=== PATIENT | female | born 1990 | race Hispanic/Latino ===

== ENCOUNTER 2020-05-10 11:48 | Emergency (ER) | payer MEDICAID, SELFPAY ==
[2020-05-10 12:00] VITALS: BP 116/70; PULSE 88; RESP 18; TEMP 36.5; O2SAT 100
--- NOTE | 2020-05-10 12:11 | ED.LOWEXIN ---
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 She also states that she is in first trimester of . States that it is hard for her to walk and she is generally uncomfortable is here for an x-ray; she has not seen by her doctor patient is G3, P2; has ultrasound scheduled on 05/20 Related Data Home Medications Medication Instructions Recorded Confirmed 05/10/20 Allergies Allergy/AdvReac Type Severity Reaction Status Date / Time No Known Allergies Allergy Unverified 03/28/18 21:40 Review of Systems Review of Systems: Narrative: CONSTITUTIONAL: Denies fever, chills, sweats. EYES: Denies visual changes, redness, discharge. ENT: Denies rhinorrhea, congestion, sore throat, otalgia. CARDIOVASCULAR: Denies chest pain, palpitations, edema. RESPIRATORY: Denies dyspnea, wheezing, cough GASTROINTESTINAL: Denies abdominal pain, nausea, vomiting, diarrhea. GENITOURINARY: Denies dysuria, hematuria, abnormal discharge SKIN: Denies rash or itching. NEUROLOGIC: Denies numbness, or focal weakness. PSYCHIATRIC: Denies anxiety or depression. Right hip pain that radiates down leg PMFSH Family History Family History Other No active medical problems Social History Social History (Updated 05/10/20 @ 12:13 by Apryl Franz CNP) Smoking status: Never smoker Alcohol intake: never Comments At time of signature, I agree with nursing past medical, surgical, social and family history. There is no relevant family history pertinent to the presenting complaint. Exam Narrative: Exam Narrative: GENERAL: This is a well-nourished, well-developed patient, in mild distress. HEAD: normocephalic, atraumatic. EYES: Sclera clear/white. Vision is grossly intact. EARS: External ears normal, auditory canals clear and without drainage, TMs normal without perforation. Hearing grossly intact. NOSE: External nose normal without nasal discharge, nares without redness, no rhinorrhea. THROAT: Mucous membranes moist, NECK: Neck supple, CARDIOVASCULAR: Regular rate and rhythm without murmurs, gallops, or rubs. RESPIRATORY: Clear to auscultation. Breath sounds equal bilaterally. No wheezes, rales, or rhonchi. GASTROINTESTINAL: Abdomen soft, SKIN: warm, intact with no suspicious lesions or rash, good texture and turgor. NEURO: awake, alert, and oriented to person, place and time. There were no obvious focal neurologic abnormalities. Steady gait EXTREMITIES: Normal range of motion. Patient is limping states she has pain in her right hip BACK: Nontender without deformity Course Course Emergency Course: Because of will not x-ray patient's hip. Explained results to patient. Discussed use of Tylenol and will give muscle relaxant encouraged her to use heat and warm baths for leg pain. Cautioned about not using ibuprofen or naproxen during first trimester of Vital Signs Vital signs: Vital Signs Temperature 97.7 F 05/10/20 12:00 Pulse Rate 88 05/10/20 12:00 Respiratory Rate 18 05/10/20 12:00 Blood Pressure 116/70 05/10/20 12:00 Pulse Oximetry 100 05/10/20 12:00 Temperature 97.7 F 05/10/20 12:00 Pulse Rate 88 05/10/20 12:00 Respiratory Rate 18 05/10/20 12:00 Blood Pressure 116/70 05/10/20 12:00 Pulse Oximetry 100 05/10/20 12:00 MDM - Extremity Injury (Lower) Differential Diagnosis Differential diagnosis: Likely other (Sciatica versus hip contusion) Discharge Plan Discharge Clinical Impression: Sciatica Qualifiers: Laterality: right Qualified Code(s): M54.31 - Sciatica, right side Juli
== END 2020-05-10 12:19 | disposition home or self-care (01) ==
PROVIDERS: Emergency Provider Nurse Practitioner
DX: O99.89 Other specified diseases and conditions complicating pregnancy, childbirth and the puerperium (principal); Z3A.00 Weeks of gestation of pregnancy not specified; M54.31 Sciatica, right side
CPT/HCPCS: 99213; G0463